=== PATIENT | male | born 2000 | race Hispanic/Latino ===

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

== ENCOUNTER 2020-04-20 14:09 | Emergency (ER) | payer SELFPAY ==
[2020-04-20] MEDS ORDERED: Ibuprofen 200 MG TAB ONE (15:05)
[2020-04-20] MEDS ORDERED: Acetaminophen 500 MG TAB ONE (15:05)
--- NOTE | 2020-04-20 15:22 | RAD ---
LEFT HAND 3 VIEWS: HISTORY: Pain following an injury at the hypothenar eminence. FINDINGS: No evidence for acute fracture or dislocation. No evidence for foreign body. Mild negative ulnar va riance. IMPRESSION: No fracture or dislocation. Mild negative ulnar variance. If there is concern for soft tissue abnormality, consider nonemergent followup MRI. POS: RRE
== END 2020-04-20 16:30 | disposition home or self-care (01) ==
LOC: ERS 14:09
DX: M79.642 Pain in left hand (principal)

== ENCOUNTER 2020-04-26 21:17 | Emergency (ER) | payer SELFPAY ==
[2020-04-27 05:22] LABS: SARS-CoV-2 MS2 Positive; SARS-CoV-2 N Gene Positive; SARS-CoV-2 S Gene Positive; SARS-CoV-2 by NAA DETECTED (NotDetected); SARS-CoV-2 orf1ab Positive
== END 2020-04-26 22:34 | disposition home or self-care (01) ==
LOC: ERS 21:17
DX: U07.1 COVID-19 (principal); G43.909 Migraine, unspecified, not intractable, without status migrainosus
CPT/HCPCS: 87081; 87430; 87635; 99283; U0003